=== PATIENT | female | born 1990 ===

== ENCOUNTER 2018-04-08 18:44 | Emergency (ER) | payer SELFPAY ==
[2018-04-08 18:47] VITALS: BMI 30.6
[2018-04-08 18:56] VITALS: BP 136/86; PULSE 84; RESP 18; TEMP 98.8; O2SAT 99
--- NOTE | 2018-04-08 20:55 | C.PDOC ---
History Of Present Illness 27 y/o female comes in to ED complaining of left knee pain for the past 3 months after she fell. She states she feels some clicking on her knee when she moves it. Patient denies any other injuries and has no other complaints at this time. Time Seen by Provider: 04/08/18 19:45 Chief Complaint (Nursing): Lower Extremity Problem/Injury History Per: Patient History/Exam Limitations: no limitations Onset/Duration Of Symptoms: Days Current Symptoms Are (Timing): Still Present Past Medical History Reviewed: Historical Data, Nursing Documentation, Vital Signs Vital Signs: Last Vital Signs Temp 98.8 F 04/08/18 18:54 Pulse 84 04/08/18 18:54 Resp 18 04/08/18 18:54 BP 136/86 04/08/18 18:54 Pulse Ox 99 04/08/18 18:54 - Medical History PMH: HTN Surgical History: Family History: States: No Known Family Hx - Social History Hx Alcohol Use: No Hx Substance Use: No Review Of Systems Except As Marked, All Systems Reviewed And Found Negative. Constitutional: Negative for: Fever, Chills Musculoskeletal: Positive for: Other (Left Knee Pain). Negative for: Neck Pain Neurological: Negative for: Weakness, Numbness Physical Exam - Physical Exam Appears: Non-toxic, No Acute Distress Skin: Warm, Dry Head: Atraumatic, Normacephalic Eye(s): bilateral: Normal Inspection Oral Mucosa: Moist Neck: Supple Extremity: Tenderness (mild tenderness to lateral kneecap, no warmth or erythema), No Deformity, No Swelling Extremity: Bilateral: Normal ROM Neurological/Psych: Oriented x3, Normal Speech, Normal Motor, Normal Sensation, Normal Reflexes ED Course And Treatment O2 Sat by Pulse Oximetry: 99 (RA) Pulse Ox Interpretation: Normal Progress Note: Left knee XR ordered. Knee brace was applied and patient was given crutches. Patient will be discharged home and was instructed to follow up with orthopedist in 1-2 days for further evaluation. Disposition - Disposition Referrals: Raj Cortez MD [Staff Provider] - Disposition: HOME/ ROUTINE Disposition Time: 20:52 Condition: STABLE Additional Instructions: Follow up with PMD within 1-2 days. Return to ED if feel worse. Prescriptions: Ibuprofen [Motrin Tab] 600 mg PO Q8 #30 tab Instructions: Knee Pain Forms: [facility] (Iranian) - Clinical Impression Clinical Impression: Knee pain - PA / [employer] / Resident Statement MD/DO has reviewed & agrees with the documentation as recorded. - Scribe Statement The provider has reviewed the documentation as recorded by the Scribe Marisabel Barnett All medical record entries made by the Jeovanyibe were at my direction and personally dictated by me. I have reviewed the chart and agree that the record accurately reflects my personal performance of the history, physical exam, medical decision making, and the department course for this patient. I have also personally directed, reviewed, and agree with the discharge instructions and disposition.
--- NOTE | 2018-04-09 10:41 | RAD ---
PROCEDURE: Left Knee Radiographs. HISTORY: s/p fall COMPARISON: None available. FINDINGS: BONES: No acute displaced fracture. JOINTS: No dislocation. JOINT EFFUSION: No significant joint effusion. OTHER FINDINGS: None. IMPRESSION: No acute displaced fracture, dislocation, or significant joint effusion identified. If symptoms persist, or if there is continued clinical concern, x-ray follow-up in 7-10 days should be considered.
== END 2018-04-08 21:03 | disposition home or self-care (01) ==
LOC: C.ER 18:44
DX: M25.562 Pain in left knee (principal); I10 Essential (primary) hypertension